=== PATIENT | female | born 1990 | race Caucasian/White ===

== ENCOUNTER 2019-12-22 03:23 | Emergency (ER) | payer SELFPAY ==
[~2019-12-22] VITALS: Ht 152.4 cm; Wt 64.1 kg
[2019-12-22 03:31] VITALS: Ht 152.4 cm; Wt 64.1 kg
[2019-12-22 04:35] LABS: microscopic required? YES; urine erythrocyte TRACE (NEGATIVE)
[2019-12-22 04:37] LABS: BASOPHIL % 0.7 % (0-2); PLATELET COUNT 279 x10^3mcL (130-400)
[2019-12-22 04:38] LABS: RED CELL DISTRIBUTION WIDTH 19.1 % (11.5-14.5)
[2019-12-22 04:42] LABS: CALCIUM 8.7 mg/dL (8.5-10.1); CARBON DIOXIDE 29.2 mmol/L (21-32); CHLORIDE SERUM 103 mmol/L (98-107); CREATININE SERUM 0.5 mg/dL (0.6-1.0); GFR1 > 60 mL/min; GLUCOSE SERUM 106 mg/dL (74-106); POTASSIUM SERUM 3.6 mmol/L (3.5-5.1); SODIUM SERUM 141 mmol/L (136-145)
[2019-12-22 04:47] LABS: ALBUMIN 3.7 g/dL (3.4-5.0); ALKALINE PHOSPHATASE 99 U/L (46-116); ALT/SGPT 80 U/L (14-59); AST/SGOT 45 U/L (15-37); BILIRUBIN TOTAL 0.18 mg/dL (0.20-1.00); IRON 14 ug/dL (50-170); TOTAL IRON BINDING CAPACITY 425 ug/dL (250-450)
[2019-12-22 06:03] VITALS: BP 119/48
== END 2019-12-22 06:04 | disposition home or self-care (01) ==
LOC: ED 03:23
PROVIDERS: Emergency Medicine
DX: R51 Headache (principal); Z86.2 Personal history of diseases of the blood and blood-forming organs and certain disorders involving the immune mechanism; Z90.710 Acquired absence of both cervix and uterus
CPT/HCPCS: 36415; J8597